=== PATIENT | male | born 1990 | race Hispanic/Latino ===

== ENCOUNTER 2018-06-02 11:16 | Emergency (ER) | payer OTHER, SELFPAY ==
[2018-06-02] MEDS ORDERED: Adacel (T-DAP) 0.5 ML SYRINGE ONE (12:52)
--- NOTE | 2018-06-02 14:05 | RAD ---
LEFT INDEX FINGER 3 VIEWS: Date: 06/02/18 INDICATION: Laceration. COMPARISON: None. FINDINGS: There is soft tissue laceration along the radial and ulnar aspects of the left index finger. No acute fracture or subluxation is grossly evident. IMPRESSION: No acute osseous abnormality. Soft tissue laceration left index finger. POS: [facility]
== END 2018-06-02 14:06 | disposition home or self-care (01) ==
LOC: ERS 11:16
DX: S61.211A Laceration without foreign body of left index finger without damage to nail, initial encounter (principal); F32.9 Major depressive disorder, single episode, unspecified; F17.210 Nicotine dependence, cigarettes, uncomplicated; Z79.899 Other long term (current) drug therapy; W26.8XXA Contact with other sharp object(s), not elsewhere classified, initial encounter
CPT/HCPCS: 12002; 90471; 90715